=== PATIENT | female | born 1990 | race American Indian/Alaskan Native ===

== ENCOUNTER 2017-09-28 10:58 | Emergency (ER) | payer MEDICAID ==
[2017-09-28 11:08] VITALS: BP 122/76
[2017-09-28 11:51] LABS: Bilirubin,Urine NEG (Negative); Blood,Urine NEG (Negative); Color,Urine Yellow (Yellow); Mucus,Urine 2+ /HPF; Protein,Urine <15 mg/dL mg/dL (Negative)
[2017-09-28 12:24] LABS: Basophils % (Auto) 0.6 % (0.0-1.8); Eosinophils # (Auto) 0.1 K/mm3 (0.0-0.4); Eosinophils % (Auto) 1.2 % (0.0-4.3); Hematocrit 40.5 % (30.3-42.9); Hemoglobin 12.9 gm/dl (10.1-14.3); Lymphocytes # (Auto) 1.9 K/mm3 (1.2-5.4); Lymphocytes % (Auto) 28.4 % (13.4-35.0); Mean Corpuscular HGB Conc 32 % (30-34); Mean Corpuscular Hemoglobin 28 pg (28-32); Mean Corpuscular Volume 88 fl (79-97); Monocytes # (Auto) 0.6 K/mm3 (0.0-0.8); Monocytes % (Auto) 9.7 % (0.0-7.3); Platelet Count 199 K/mm3 (140-440); Red Cell Distribution Width 15.2 % (13.2-15.2)
--- NOTE | 2017-09-28 13:02 | Emergency Department Report ---
ED Female HPI - General Chief complaint: Vaginal Bleeding Stated complaint: /BLEEDING Time Seen by Provider: 09/28/17 12:52 Source: patient Mode of arrival: Ambulatory Limitations: No Limitations - History of Present Illness Initial comments: Ms. Harris is a healthy G4. 3 currently patient who presents with vaginal spotting. Vaginal spotting occurred last night. She had small amount of blood clotting. Vaginal bleeding now resolved. 4 days ago she had mild cramping. She felt as if she was going to have her normal menses. Home test today was positive. She is approximately 4 weeks . She is unclear of the date of last menstrual period. She approximated that LMP was August 24. MD Complaint: vaginal bleeding -: Sudden Severity: mild Quality: cramping Consistency: now resolved Improves with: none Worsens with: none Associated Symptoms: denies other symptoms, vaginal bleeding - Related Data : 4 Para: 3 Previous Rx's Medication Instructions Recorded Last Taken Type Ondansetron [Zofran Odt] 4 mg PO Q6H #14 tab.rapdis 03/29/14 Unknown Rx Vit-Fe Fumar-FA [ 1 each PO QDAY #30 tablet 03/29/14 Unknown Rx Vitamin] Allergies Allergy/AdvReac Type Severity Reaction Status Date / Time Penicillins AdvReac Rash Verified 03/28/14 20:54 ED Review of Systems ROS: Stated complaint: /BLEEDING Other details as noted in HPI Comment: All other systems reviewed and negative Constitutional: denies: fever, malaise Respiratory: denies: cough Cardiovascular: denies: chest pain ED Past Medical Hx - Past Medical History Previous Medical History?: Yes Additional medical history: vaginal dleivery x 3 - Surgical History Past Surgical History?: No - Social History Smoking Status: Current Every Day Smoker Substance Use Type: Alcohol, Non Opiate Pain - Medications Home Medications: Home Medications Medication Instructions Recorded Confirmed Last Taken Type Ondansetron [Zofran Odt] 4 mg PO Q6H #14 tab.rapdis 03/29/14 Unknown Rx Vit-Fe Fumar-FA [ 1 each PO QDAY #30 tablet 03/29/14 Unknown Rx Vitamin] ED Physical Exam - General Limitations: No Limitations General appearance: alert, in no apparent distress - Head Head exam: Present: atraumatic, normocephalic - Eye Eye exam: Present: normal appearance - ENT ENT exam: Present: mucous membranes moist - Neck Neck exam: Present: normal inspection. Absent: tenderness, meningismus - Respiratory Respiratory exam: Present: normal lung sounds bilaterally. Absent: respiratory distress, wheezes, rales, rhonchi - Cardiovascular Cardiovascular Exam: Present: regular rate, normal rhythm, normal heart sounds. Absent: systolic murmur, diastolic murmur, rubs, gallop - GI/Abdominal GI/Abdominal exam: Present: soft, normal bowel sounds. Absent: distended, tenderness, guarding, rebound - Extremities Exam Extremities exam: Present: normal inspection - Back Exam Back exam: Present: normal inspection - Neurological Exam Neurological exam: Present: alert, oriented X3 - Psychiatric Psychiatric exam: Present: normal affect, normal mood - Skin Skin exam: Present: warm, dry, intact, normal color. Absent: rash ED Course Vital Signs 09/28/17 11:03 Temperature 98.9 F Pulse Rate 112 H Respiratory 20 Rate Blood Pressure 122/76 O2 Sat by Pulse 99 Oximetry ED Medical Decision Making - Lab Data Result diagrams: 09/28/17 12:07 - Radiology Data Radiology results: report reviewed - Medical Decision Making Vaginal bleeding with new diagnosis of : IUP confirmed on ultrasound. Estimated date of conception per ultrasound strongly correlates with LMP dates. Patient understands ectopic precautions. Diagnosis: Threatened , threatened miscarriage Critical care attestation.: If time is entered above; I have spent that time in minutes in the direct care of this critically ill patient, excluding procedure time. ED Disposition Clinical Impression: Threatened miscarriage in early Disposition: DC-01 TO HOME OR SELFCARE Is pt being admited?: No Does the pt Need Aspirin: No Condition: Stable Instructions: Threatened Miscarriage (ED) Referrals: ABDIFATAH JAMESON MD [Staff Physician] - 3-5 Days Time of Disposition: 14:30
--- NOTE | 2017-09-28 13:54 | Ultrasound Report ---
TRANSABDOMINAL AND TRANSVAGINAL OBSTETRICAL ULTRASOUND:09/28/17 10:58:00 CLINICAL: Positive test and vaginal spotting. FINDINGS: Transabdominal and transvaginal ultrasound demonstrated a retroflexed uterus containing a single gestational sac measuring 3.8 mm and a mean diameter. No sac or heart beat identified. The cervix is closed. No adnexal mass or free fluid. Normal ovaries. The right ovary measured 3.4 x 1.8 x 3.2cm. The left ovary measured 2.6 x 1.4 x 2.6cm. The uterus measured 13.1 x 6.1 x 7.4cm. IMPRESSION: Single intrauterine at approximately 5 weeks gestation based on sac size. EDC based on ultrasound is 05/31/18. EDC based on LMP is 05/30/18.
== END 2017-09-28 14:39 | disposition home or self-care (01) ==
LOC: ED 10:58
DX: O20.0 Threatened abortion (principal); F17.200 Nicotine dependence, unspecified, uncomplicated; Z3A.12 12 weeks gestation of pregnancy; Z88.0 Allergy status to penicillin
CPT/HCPCS: 36415; 76801; 76817; 81001; 84702; 85025; 86850; 86900; 86901

== ENCOUNTER 2019-07-03 23:06 | Emergency (ER) | payer MEDICAID | END 2019-07-04 01:35 | disposition left against medical advice (07) | LOC: ED 23:06 | DX: M79.602 Pain in left arm (principal); Z53.21 Procedure and treatment not carried out due to patient leaving prior to being seen by health care provider ==

== ENCOUNTER 2020-06-16 08:49 | Day surgery (SDC) | payer MEDICAID ==
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
[~2020-06-16 08:49] MED LIST: BUPIVACAINE/PF (0.5%) 5 MG/1 ML 30 ML VIAL INFILTRATI ONE
--- NOTE | 2020-06-16 09:21 | Anesthesia Day of Surgery ---
Anesthesia Day of Surgery - Day of Surgery Patient Examined: Yes Patient H&P Reviewed: Yes Patient is NPO: Yes
--- NOTE | 2020-06-16 09:24 | Anesthesia Consultation ---
Anesthesia Consult and Med Hx Date of service: 06/16/20 - Airway Anesthetic Teeth Evaluation: Good ROM Head & Neck: Adequate Mental/Hyoid Distance: Adequate Mallampati Class: Class I Intubation Access Assessment: Good - Pre-Operative Health Status ASA Pre-Surgery Classification: ASA1 Proposed Anesthetic Plan: General - Pulmonary Hx Smoking: Yes (Past hx) Hx Asthma: No COPD: No Hx Pneumonia: No - Central Nervous System Hx Psychiatric Problems: No - Gastrointestinal Hx Gastroesophageal Reflux Disease: No - Endocrine Hx End Stage Renal Disease: No - Hematic Hx Sickle Cell Disease: No - Other Systems Hx Alcohol Use: No Hx Cancer: No
[2020-06-16] MEDS ORDERED: MAGNESIUM OXIDE 400 MG TAB PO SCH (09:30)
[2020-06-16] MEDS ORDERED: LACTATED RINGERS 1,000 ML IV SCH (09:30)
[2020-06-16] MEDS ORDERED: HYDROmorphone 1 MG/1 ML INJ IV PRN ×2 (09:30→10:00)
[2020-06-16] MEDS ORDERED: ACETAMINOPHEN 500 MG TAB PO SCH (09:30)
[2020-06-16] MEDS ORDERED: CELECOXIB 200 MG CAP PO NR (10:00)
[2020-06-16] MEDS ORDERED: ONDANSETRON 4 MG/2 ML INJ IV PRN (10:00)
[2020-06-16] MEDS ORDERED: MIDAZOLAM 2 MG/2 ML INJ IV NR (10:00)
[2020-06-16] MEDS ORDERED: GABAPENTIN 300 MG CAP PO NR (10:00)
[2020-06-16] MEDS ORDERED: BUPIVACAINE/PF (0.5%) 5 MG/1 ML 30 ML VIAL INFILTRATI ONE ×2 (11:06)
[2020-06-16] MEDS ORDERED: ROCURONIUM 50 MG/5 ML INJ IV ONE (11:35)
[2020-06-16] MEDS ORDERED: LIDOCAINE MPF (2%) 20 MG/1 ML VIAL 5 ML ONE (11:35)
[2020-06-16] MEDS ORDERED: propofoL 200 MG/20 ML VIAL IV ONE (11:35)
[2020-06-16] MEDS ORDERED: fentaNYL 100 MCG/2 ML INJ ONE (11:35)
[2020-06-16] MEDS ORDERED: dexAMETHasone 20 MG/5 ML VIAL ONE (12:15)
[2020-06-16] MEDS ORDERED: ONDANSETRON 4 MG/2 ML INJ ONE (12:15)
[2020-06-16] MEDS ORDERED: GLYCOPYRROLATE 0.4 MG/2 ML INJ ONE (12:16)
[2020-06-16] MEDS ORDERED: NEOSTIGMINE 10MG/10 ML INJ MDV ONE (12:16)
[2020-06-16] MEDS ORDERED: KETOROLAC 30 MG/1 ML INJ ONE (12:16)
[2020-06-16] MEDS ORDERED: LACTATED RINGERS 1,000 ML ONE (12:20)
--- NOTE | 2020-06-16 12:45 | Operative Report ---
Operative Report Operative Report: Date of procedure: June 16, 2020 Pre-operative diagnosis: Patient desires permanent sterilization Post-operative diagnosis: Same Procedure name(s): Laparoscopic bilateral salpingectomy Surgeon: Wilbur Sy MD [place] Operator: [] Anesthesia: General endotracheal EBL: Minimal Complications: None Findings: Patient with uterus approximately 8-10 weeks in size with normal fallopian tubes bilaterally Specimen(s): Bilateral fallopian tubes Patient was brought in the operating room. General anesthesia was induced without difficulty. She was placed in dorsal lithotomy position. Prepped and draped in usual sterile manner. Her urinary bladder with was emptied with a red rubber catheter. Speculum placed in her vagina and Sargis uterine manipulator was placed for uterine manipulation without difficulty. Attention was then switched to the patient's abdomen. An infra-umbilical incision was made with a scalpel. This incision was spread with a hemostat. A 5 mm trocar was placed in this incision while lifting high the abdominal wall. Intra-abdominal presence was verified directly with the laparoscope. The patient was then insufflated to approximately 3 L of CO2 gas. The patient's findings as noted above. An accessory puncture was made suprapubically. The 8 mm trocar was placed through this incision under direct visualization with no evidence of internal organ damage. Each of the fallopian tube were identified by its fimbriated end. Starting with the right fallopian tube approximately 1 to 2 cm from the cornea LigaSure device was used to cross sectional cut the tube. From this point the ligature device was used to cauterize and cut the mesosalpinx until the fimbriated end was reached detaching the tube. The fallopian tube was then removed through the accessory port attention was then switched to the contralateral tube. Same procedure was performed detaching that tube and removed it through the accessory port. The remaining stump was inspected and found to be hemostatic. At this time all instruments were removed. The patient was de-insufflated. The skin incisions were closed subcuticularly with 4-0 Vicryl. Marcaine was injected into the surgical incisions, for postoperative pain relief. The patient tolerated procedure well. She was awakened in the operating room and accompanied to the recovery room in good condition.
--- NOTE | 2020-06-16 12:48 | Short Stay Summary ---
Short Stay Documentation Date of service: 06/16/20 - History Past Medical History: other (SEE HPI FOR DETAILS) Past Surgical History: Other (SEE HPI FOR DETAILS) Social history: full code, other (SEE HPI FOR DETAILS) - Allergies and Medications Current Medications: Allergies Penicillins Adverse Reaction (Verified 03/28/14 20:54) Rash Home Medications Medication Instructions Recorded Confirmed Last Taken Type oxyCODONE /ACETAMINOPHEN [Percocet 1 - 2 tab PO Q6HR PRN #20 tablet 06/16/20 Unknown Rx 5/325 mg] Active Medications Acetaminophen (Acetaminophen 500 Mg Tab) 1,000 mg PO ONCE JACKIE Stop: 06/16/20 21:00 Last Admin: 06/16/20 10:00 Dose: 1,000 mg Documented by: Celecoxib (Celecoxib 200 Mg Cap) 400 mg PO PREOP NR Stop: 06/16/20 21:00 Last Admin: 06/16/20 10:50 Dose: 400 mg Documented by: Gabapentin (Gabapentin 300 Mg Cap) 600 mg PO PREOP NR Stop: 06/16/20 21:00 Last Admin: 06/16/20 10:00 Dose: 600 mg Documented by: Hydromorphone HCl (Hydromorphone 1 Mg/1 Ml Inj) 0.25 mg IV Q10MIN PRN PRN Reason: Pain, Moderate (4-6) Stop: 06/16/20 17:00 Hydromorphone HCl (Hydromorphone 1 Mg/1 Ml Inj) 0.5 mg IV Q10MIN PRN PRN Reason: Pain , Severe (7-10) Stop: 06/16/20 17:00 Lactated Ringer's (Lactated Ringers) 1,000 mls @ 125 mls/hr IV DIRECT JACKIE Last Admin: 06/16/20 10:00 Dose: 125 mls/hr Documented by: Magnesium Oxide (Magnesium Oxide 400 Mg Tab) 400 mg PO ONCE JACKIE Stop: 06/16/20 21:00 Last Admin: 06/16/20 10:00 Dose: 400 mg Documented by: Midazolam HCl (Midazolam 2 Mg/2 Ml Inj) 2 mg IV PREOP NR Stop: 06/16/20 23:59 Ondansetron HCl (Ondansetron 4 Mg/2 Ml Inj) 4 mg IV ONCE PRN PRN Reason: Nausea And Vomiting Stop: 06/16/20 17:00 - Physical exam General appearance: no acute distress HEENT: Atraumatic Lungs: Normal air movement Breasts: deferred Heart: Regular rate Gastrointestinal: tenderness (Appropriately postop), distended (Consistent with recent pneumoperitoneum), other (Healing surgical wounds intact) Female Genitourinary: normal Rectal Exam: deferred Extremities: no ischemia - Brief post op/procedure progress note Date of procedure: 06/16/20 (See dictated operative note for details) - Hospital course Hospital course: Patient was admitted underwent the above him procedure without any complications. Patient will be discharged with follow-up in office in 1-2 weeks for postop check. - Disposition Condition at discharge: Good Disposition: DC-01 TO HOME OR SELFCARE - Discharge Diagnoses (1) Encounter for female sterilization procedure Status: Acute Short Stay Discharge Plan Activity: advance as tolerated Diet: regular Wound: open to air Follow up with: PRIMARY CARE, [Primary Care Provider] - 7 Days Prescriptions: oxyCODONE /ACETAMINOPHEN [Percocet 5/325 mg] 1 - 2 tab PO Q6HR PRN #20 tablet PRN Reason: Pain
[2020-06-16] MEDS ORDERED: oxyCODONE /ACETAMINOPHEN 5-325MG TAB PO PRN (13:17)
[2020-06-16 13:32] VITALS: BP 135/83
--- NOTE | 2020-06-16 14:57 | Post Anesthesia Evaluation ---
- Post Anesthesia Evaluation Patient Participated: Yes Airway Patent: Yes Stable Respiratory Function: Yes Nausea/Vomiting: No Temp > 96.8F: Yes Pain Manageable: Yes Adequeate Hydration: Yes Anesthesia Complications: No Block Receding Appropriately: Not Applicable Patient on Ventilator: No
== END 2020-06-16 13:55 | disposition home or self-care (01) ==
LOC: OR 08:49
PROVIDERS: ATTEND Obstetrics & Gynecology
DX: Z30.2 Encounter for sterilization (principal); Z79.899 Other long term (current) drug therapy; Z87.891 Personal history of nicotine dependence; Z98.890 Other specified postprocedural states
CPT/HCPCS: 58670; 81025; 88302; J1100; J1885; J2405; J2704; J2710; J3010; J7120